=== PATIENT | female | born 1990 | race Caucasian/White ===

== ENCOUNTER → 2018-03-01 | Outpatient (CLI) | payer OTHER ==
[~2018-03-01] MED LIST: BACITO TP; HYDACE5325 PO; OXYACE5T PO; RXHYD5325 PO; RXOXYACE PO; SILSUL1TC TOP
== END | disposition home or self-care (01) ==
LOC: LAB SHORT 19:56 → LAB 19:56
PROVIDERS: Internal Medicine
DX: Z01.419 Encounter for gynecological examination (general) (routine) without abnormal findings (principal)
CPT/HCPCS: G0145

== ENCOUNTER → 2019-09-27 | Outpatient (CLI) | payer OTHER | END | disposition home or self-care (01) | LOC: LAB SHORT 12:00 → LAB 12:00 | PROVIDERS: Nurse Practitioner | DX: Z01.419 Encounter for gynecological examination (general) (routine) without abnormal findings (principal) | CPT/HCPCS: G0145 ==

== ENCOUNTER 2020-07-12 16:00 | Inpatient (IN) | payer BC ==
[~2020-07-12] VITALS: Ht 157.5 cm; Wt 73.2 kg
[2020-07-12 17:00] LABS: BASOPHILS ABSOLUTE AUTO 0.05 K/mm3 (0.00-0.23); BASOPHILS PERCENT AUTO 0 % (0-2); EOSINOPHILS ABSOLUTE AUTO 0.23 K/mm3 (0.00-0.68); EOSINOPHILS PERCENT AUTO 2 % (0-6); Hematocrit 36.9 % (33.0-51.0); Hemoglobin 12.2 g/dL (11.5-16.0); IMMATURE GRAN ABSOLUTE AUTO 0.07 K/mm3 (0.00-0.10); IMMATURE GRAN PERCENT AUTO 1 % (0-1); LYMPHOCYTES ABSOLUTE AUTO 1.96 K/mm3 (0.84-5.20); LYMPHOCYTES PERCENT AUTO 15 % (21-46); MONOCYTES PERCENT AUTO 7 % (4-13); Mean Corpuscular HGB 28.6 pg (26.0-34.0); Mean Corpuscular HGB Conc 33.1 g/dL (31.5-36.5); Mean Corpuscular Volume 87 fL (80-100); Mean Platelet Volume 11.5 fL (9.1-12.4); NEUTROPHILS ABSOLUTE AUTO 10.21 K/mm3 (1.96-9.15); NEUTROPHILS PERCENT AUTO 76 % (41-73); Platelet Count 260 K/mm3 (150-400); RDW Coefficient Variation 14.8 % (11.7-14.2); RDW Standard Deviation 45.9 fL (35.1-46.3); Red Blood Cell Count 4.26 M/mm3 (3.80-5.20); White Blood Cell Count 13.42 K/mm3 (4.00-11.30)
[2020-07-14 03:30] LABS: PCO2 Cord - Arterial 48.8 mmHg (40-50); PO2 Cord - Arterial 14.6 mmHg (16-20); pH Cord - Arterial 7.32 (7.28-7.35)
[2020-07-14 03:31] LABS: PCO2 Cord - Venous 47.5 mmHg (40-50); PO2 Cord - Venous 15.5 mmHg (28-32); pH Umbilical Cord - Venous 7.33 (7.26-7.35)
--- NOTE | 2020-07-14 03:34 | NUR ---
-RT x2 attented C/S. -Baby born at 0307, see counter top assembler for scores. -Baby born with strong cry, some central cyanosis (improving), and good tone. -No nasal flaring, no retractions. -Baby dried and stimulated. -Baby able to clear their own airway. -No further RT interventions.
[2020-07-14 12:02] LABS: Hematocrit 33.6 % (33.0-51.0); Hemoglobin 11.3 g/dL (11.5-16.0); Mean Corpuscular HGB 29.4 pg (26.0-34.0); Mean Corpuscular HGB Conc 33.6 g/dL (31.5-36.5); Mean Corpuscular Volume 87 fL (80-100); Mean Platelet Volume 11.3 fL (9.1-12.4); Platelet Count 210 K/mm3 (150-400); RDW Coefficient Variation 14.9 % (11.7-14.2); RDW Standard Deviation 46.7 fL (35.1-46.3); Red Blood Cell Count 3.85 M/mm3 (3.80-5.20); White Blood Cell Count 21.83 K/mm3 (4.00-11.30)
--- NOTE | 2020-07-14 14:15 | NUR ---
REPORT TO SOUMYA MANDUJANO
--- NOTE | 2020-07-15 00:14 | NUR ---
PT'S BP 158/81 AFTER RETURNING TO BED FROM GOING TO BATHROOM, PT STATES SHE IS IN GURU EPAIN WITH MOVING. RN TO REDO BP AFTER PT HAS BEEN RESTING IN BED. PT DENIES ANY HEADACHE, TINGLING/NUMBNESS, VISUAL DISTURBANCES.
--- NOTE | 2020-07-15 10:15 | NUR ---
doing well, plans to get up and walk soon,
--- NOTE | 2020-07-15 16:52 | NUR ---
RN ROUNDED TO HELP W/ . PT REPORTS IS GOING WELL. NB ROOTING AROUND, INSTRUCT/DEMO WIDENING LATCH, CORRECT POSITIONING AND NIPPLE SHAPE AFTER FEEDS. NB LATCHED WELL AND APPEARS TO BE FEEDING WELL, MOM HAS INITIAL LATCH ON PAIN THAT GOES AWAY. INSTRUCT/REVIEWED BOOKLET ON CORRECT LATCHING AND WHAT TO EXPECT W/ DURING THE FIRST WEEK OF LIFE. MOM LOVING W/ NB, DENIES ANY FURTHER QUESTIONS OR CONCERNS.
--- NOTE | 2020-07-15 22:40 | NUR ---
AT 2100 PT CALLED RN TO ROOM. PT STATED SHE FELL ASLEEP WITH ON HER CHEST AND WAS AWOKEN TO A HEAVINESS IN HER CHEST AND A HARD TIME BREATHING. VITALS CHECKED AND WNL. BLEEDING WNL. FUNDUS FIRM. PT STATES THE EPISODE ONLY LASTED A MOMENT. PT ADVISED TO CALL IF EPISODE OCCURS AGAIN. PLACED IN CRIB. PT AWARE OF TO BE IN CRIB FOR SLEEPING. WILL CONTINUE TO MONITOR
--- NOTE | 2020-07-16 08:30 | NUR ---
RN ROUNDED TO HELP W/ . PT STATES HAS BEEN GOING WELL, DENIES ANY FURTHER QUESTIONS OR CONCERNS. FURTHER SUPPORT OFFERED THROUGH [facility].
[2020-07-16] MEDS ORDERED: IBUP800 (09:04)
[2020-07-16] MEDS ORDERED: Percocet 5-3251 EACH (09:04)
== END 2020-07-16 11:24 | disposition home or self-care (01) | DRG 788 ==
LOC: OBS 16:00 → BC 16:09 → OBS 16:17 → BC 16:20
PROVIDERS: Obstetrics & Gynecology; ADMIT Nurse Practitioner Obstetrics & Gynecology
PROC: 3E0P7VZ Introduction of Hormone into Female Reproductive, Via Natural or Artificial Opening (ICD-10-PCS; 2020-07-12)
PROC: 3E033VJ Introduction of Other Hormone into Peripheral Vein, Percutaneous Approach (ICD-10-PCS; 2020-07-13)
PROC: 10H07YZ Insertion of Other Device into Products of Conception, Via Natural or Artificial Opening (ICD-10-PCS; 2020-07-13)
PROC: 00HU33Z Insertion of Infusion Device into Spinal Canal, Percutaneous Approach (ICD-10-PCS; 2020-07-13)
PROC: 3E0R3BZ Introduction of Anesthetic Agent into Spinal Canal, Percutaneous Approach (ICD-10-PCS; 2020-07-13)
PROC: 10D00Z1 Extraction of Products of Conception, Low, Open Approach (ICD-10-PCS; principal; 2020-07-14 02:00)
DX: O48.0 Post-term pregnancy (principal); O76 Abnormality in fetal heart rate and rhythm complicating labor and delivery; O77.0 Labor and delivery complicated by meconium in amniotic fluid; O64.0XX0 Obstructed labor due to incomplete rotation of fetal head, not applicable or unspecified; Z3A.41 41 weeks gestation of pregnancy; Z37.0 Single live birth; O61.0 Failed medical induction of labor; Z20.828 Contact with and (suspected) exposure to other viral communicable diseases
CPT/HCPCS: 36415; 82803; 85025; 85027; 86900; 86901; A9270; J0290; J0690; J1885; J2001; J2210; J2405; J2590; J2765; J3010; J7120; Q2038; U0003

== ENCOUNTER → 2023-05-14 | Outpatient (CLI) | payer OTHER ==
[~2023-05-14] MED LIST changes: +IBUP800; +Percocet 5-3251 EACH
[2023-05-14 13:23] LABS: BASOPHILS ABSOLUTE AUTO 0.07 K/mm3 (0.00-0.23); BASOPHILS PERCENT AUTO 1 % (0-2); EOSINOPHILS ABSOLUTE AUTO 0.44 K/mm3 (0.00-0.68); EOSINOPHILS PERCENT AUTO 8 % (0-6); Hematocrit 40.3 % (33.0-51.0); Hemoglobin 13.3 g/dL (11.5-16.0); IMMATURE GRAN ABSOLUTE AUTO 0.01 K/mm3 (0.00-0.10); IMMATURE GRAN PERCENT AUTO 0 % (0-1); LYMPHOCYTES ABSOLUTE AUTO 2.03 K/mm3 (0.84-5.20); LYMPHOCYTES PERCENT AUTO 37 % (21-46); MONOCYTES ABSOLUTE AUTO 0.53 K/mm3 (0.16-1.47); MONOCYTES PERCENT AUTO 10 % (4-13); Mean Corpuscular HGB 28.9 pg (26.0-34.0); Mean Corpuscular Volume 87 fL (80-100); Mean Platelet Volume 10.9 fL (9.1-12.4); NEUTROPHILS ABSOLUTE AUTO 2.44 K/mm3 (1.96-9.15); NEUTROPHILS PERCENT AUTO 44 % (41-73); Platelet Count 296 K/mm3 (150-400); RDW Standard Deviation 41.5 fL (35.1-46.3); Red Blood Cell Count 4.61 M/mm3 (3.80-5.20); White Blood Cell Count 5.52 K/mm3 (4.00-11.30)
[2023-05-14 13:28] LABS: Alanine Aminotransfer (ALT/SGP 21 U/L (12-78); Albumin/Globulin Ratio 1.2 (0.8-1.8); Alk Phos 56 U/L (50-136); Anion Gap 4 mmol/L (6-16); Aspartate Aminotrans (AST/SGOT 11 U/L (12-37); Bilirubin, Total 0.6 mg/dL (0.1-1.0); Blood Urea Nitrogen 12 mg/dL (8-24); CHOL/HDL RATIO 2.2; CO2, Blood 27 mmol/L (21-32); Calcium, Blood 9.1 mg/dL (8.5-10.1); Chloride, Blood 109 mmol/L (98-108); Cholesterol 171 mg/dL (50-200); Creatinine, Blood 0.86 mg/dL (0.40-1.00); Globulin, Blood 3.3 g/dL (2.2-4.0); Glomerular Filtration Rate 91 (60-); Glucose, Blood 87 mg/dL (70-99); HDL Cholesterol 77 mg/dL (>39); LDL/HDL RATIO 1.1; Low Density Lipoprotein Chol 82 mg/dL (0-110); Sodium, Blood 140 mmol/L (136-145); Total Protein, Blood 7.3 g/dL (6.4-8.2); Triglycerides 59 mg/dL (30-140); Very Low Density Lipoprot Chol 11 mg/dL (6-28)
== END | disposition home or self-care (01) ==
LOC: LAB SHORT 10:39
PROVIDERS: Physician Assistant
DX: Z13.6 Encounter for screening for cardiovascular disorders (principal); Z11.59 Encounter for screening for other viral diseases; R22.1 Localized swelling, mass and lump, neck
CPT/HCPCS: 80053; 80061; 85025; 86803

== ENCOUNTER 2023-11-16 06:49 | Emergency (ER) | payer BC ==
[~2023-11-16] VITALS: Ht 157.5 cm; Wt 63.5 kg
[2023-11-16 07:34] VITALS: BP 121/71
[2023-11-16] MEDS ORDERED: BUPROPION XL150 M1 PO (07:37)
[2023-11-16] MEDS ORDERED: ZOLOFT50 MG PO (07:37)
[2023-11-16] MEDS ORDERED: ERGO400 PO (07:37)
[2023-11-16] MEDS ORDERED: PRENATAL TABLE1 EAC2 PO (07:38)
[2023-11-16] MEDS ORDERED: ZYRTEC10 M2 PO (07:38)
[2023-11-16] MEDS ORDERED: CYCL10 PO (08:11)
== END 2023-11-16 08:19 | disposition home or self-care (01) ==
LOC: ER 06:49
DX: M54.6 Pain in thoracic spine (principal); Z79.899 Other long term (current) drug therapy
CPT/HCPCS: 99283

== ENCOUNTER → 2024-07-01 | Outpatient (CLI) | payer BC ==
[~2024-07-01] MED LIST changes: +BUPROPION XL150 M1 PO; +CYCL10 PO; +ERGO400 PO; +PRENATAL TABLE1 EAC2 PO; +ZOLOFT50 MG PO; +ZYRTEC10 M2 PO
== END | disposition home or self-care (01) ==
LOC: LAB SHORT 12:35 → LAB 12:35
DX: L08.9 Local infection of the skin and subcutaneous tissue, unspecified (principal)
CPT/HCPCS: 87070; 87075; 87077; 87147; 87186; 87205

== ENCOUNTER → 2025-01-03 | Outpatient (CLI) | payer BC | END | disposition home or self-care (01) | LOC: LAB SHORT 11:14 → LAB 11:14 | DX: L30.9 Dermatitis, unspecified (principal); S91.309A Unspecified open wound, unspecified foot, initial encounter; L72.9 Follicular cyst of the skin and subcutaneous tissue, unspecified | CPT/HCPCS: 87070; 87075; 87077; 87186; 87205 ==

== ENCOUNTER → 2025-02-06 | Outpatient (CLI) | payer BC ==
[2025-02-06 16:43] LABS: BASOPHILS ABSOLUTE AUTO 0.04 K/mm3 (0.00-0.23); BASOPHILS PERCENT AUTO 0 % (0-2); EOSINOPHILS ABSOLUTE AUTO 0.48 K/mm3 (0.00-0.68); EOSINOPHILS PERCENT AUTO 5 % (0-6); Hematocrit 34.5 % (33.0-51.0); Hemoglobin 11.3 g/dL (11.5-16.0); IMMATURE GRAN ABSOLUTE AUTO 0.08 K/mm3 (0.00-0.10); IMMATURE GRAN PERCENT AUTO 1 % (0-1); LYMPHOCYTES ABSOLUTE AUTO 1.62 K/mm3 (0.84-5.20); LYMPHOCYTES PERCENT AUTO 16 % (21-46); MONOCYTES ABSOLUTE AUTO 0.74 K/mm3 (0.16-1.47); MONOCYTES PERCENT AUTO 7 % (4-13); Mean Corpuscular HGB Conc 32.8 g/dL (31.5-36.5); Mean Corpuscular Volume 89 fL (80-100); Mean Platelet Volume 11.2 fL (9.1-12.4); NEUTROPHILS ABSOLUTE AUTO 7.51 K/mm3 (1.96-9.15); NEUTROPHILS PERCENT AUTO 72 % (41-73); Platelet Count 284 K/mm3 (150-400); RDW Coefficient Variation 13.2 % (11.7-14.2); RDW Standard Deviation 42.6 fL (35.1-46.3); White Blood Cell Count 10.47 K/mm3 (4.00-11.30)
== END | disposition home or self-care (01) ==
LOC: LAB 13:50 → LAB SHORT 13:50
PROVIDERS: Advanced Practice Midwife
DX: Z34.82 Encounter for supervision of other normal pregnancy, second trimester (principal)
CPT/HCPCS: 82950; 85025

== ENCOUNTER 2025-04-25 07:53 | Inpatient (IN) | payer BC ==
[2025-04-24 13:23] LABS: BASOPHILS ABSOLUTE AUTO 0.05 K/mm3 (0.00-0.23); BASOPHILS PERCENT AUTO 0 % (0-2); EOSINOPHILS ABSOLUTE AUTO 0.40 K/mm3 (0.00-0.68); EOSINOPHILS PERCENT AUTO 3 % (0-6); Hematocrit 35.3 % (33.0-51.0); Hemoglobin 11.8 g/dL (11.5-16.0); IMMATURE GRAN ABSOLUTE AUTO 0.08 K/mm3 (0.00-0.10); IMMATURE GRAN PERCENT AUTO 1 % (0-1); LYMPHOCYTES ABSOLUTE AUTO 2.03 K/mm3 (0.84-5.20); LYMPHOCYTES PERCENT AUTO 15 % (21-46); MONOCYTES ABSOLUTE AUTO 1.06 K/mm3 (0.16-1.47); MONOCYTES PERCENT AUTO 8 % (4-13); Mean Corpuscular HGB Conc 33.4 g/dL (31.5-36.5); Mean Corpuscular Volume 84 fL (80-100); NEUTROPHILS ABSOLUTE AUTO 9.73 K/mm3 (1.96-9.15); NEUTROPHILS PERCENT AUTO 73 % (41-73); NRBC ABSOLUTE 0.00 K/mm3 (0.00-0.02); NRBC Auto 0.0 /100 WBC (0.0-0.2); Platelet Count 260 K/mm3 (150-400); RDW Coefficient Variation 13.8 % (11.7-14.2); RDW Standard Deviation 42.4 fL (35.1-46.3)
[2025-04-24 14:07] LABS: Alanine Aminotransfer (ALT/SGP 28.0 U/L (12-78); Albumin, Blood 2.6 g/dL (3.4-5.0); Albumin/Globulin Ratio 0.6 (0.8-1.8); Anion Gap 7.0 mmol/L (3-11); Aspartate Aminotrans (AST/SGOT 24.0 U/L (12-37); Bilirubin, Total 0.3 mg/dL (0.1-1.0); Blood Urea Nitrogen 9.0 mg/dL (8-24); CO2, Blood 24.0 mmol/L (21-32); Calcium, Blood 9.5 mg/dL (8.5-10.1); Chloride, Blood 106.0 mmol/L (98-108); Creatinine, Blood 0.73 mg/dL (0.40-1.00); Globulin, Blood 4.2 g/dL (2.2-4.0); Glucose, Blood 83.0 mg/dL (70-99); Potassium, Blood 3.8 mmol/L (3.5-5.5); Sodium, Blood 133.0 mmol/L (136-145); Total Protein, Blood 6.8 g/dL (6.4-8.2)
[2025-04-25] VITALS (17 sets, daily range): BP systolic 89–132; BP diastolic 51–78
[~2025-04-25] VITALS: Ht 157.5 cm; Wt 87.7 kg
[2025-04-25] MEDS ORDERED: CeFAZolin Sodium 2,000 MG in NS 100 ML IV SCH (08:00)
[2025-04-25] MEDS ORDERED: Metoclopramide HCl 5MG / ML 2ML Vial IV ONE (08:00)
[2025-04-25] MEDS ORDERED: Citric Acid/Sodium Citrate 30 ML BTL PO SCH (08:00)
[2025-04-25] MEDS ORDERED: Phenylephrine HCl 100 MCG/ML-NS 10MLSYR (1MG/10ML) ONE (10:20)
[2025-04-25] MEDS ORDERED: ePHEDrine Sulfate 50 MG/ML 1ML Injection ONE (10:26)
[2025-04-25] MEDS ORDERED: Oxytocin 10 Unit / ML Vial ONE ×2 (10:29)
[2025-04-25] MEDS ORDERED: Ondansetron HCl 2 MG / ML 2ML Vial ONE (10:39)
[2025-04-25] MEDS ORDERED: Dexamethasone Sod Phos 10 MG/ML 1ML VIAL ONE (10:59)
--- NOTE | 2025-04-25 11:04 | NUR ---
04/25/25 1104 [place] REPEAT SECTION DELIVERY OF VIABLE FEMALE AT 1035. CORD BLOOD COLLECTED AND GIVEN TO NILDA BURNETT RN. PPV GIVEN FOR 15 SECONDS FOLLOWED BY CPA. DR MUSE TO SEE IN OR. CARE CONTINUED BY NILDA BURNETT RN.
[2025-04-25] MEDS ORDERED: HYDROmorphone HCl/Pf 1MG SYR IV PRN ×2 (11:10)
[2025-04-25] MEDS ORDERED: FentaNYL Citrate 50 MCG/ML 2 ML Injection IV PRN ×2 (11:15)
[2025-04-25] MEDS ORDERED: Albuterol 2.5 MG/3 ML VIAL INH PRN (11:15)
[2025-04-25] MEDS ORDERED: Ondansetron HCl 2 MG / ML 2ML Vial IV PRN (11:15)
[2025-04-25] MEDS ORDERED: ePHEDrine Sulfate 50 MG/ML 1ML Injection IV PRN (11:15)
[2025-04-25] MEDS ORDERED: Ketorolac Tromethamine 30mg Vial IV PRN (11:55)
[2025-04-25] MEDS ORDERED: Magnesium Hydroxide Conc 10 ML UDC PO PRN (12:40)
[2025-04-25] MEDS ORDERED: Tranexamic Acid 1000 MG/10 ML 10ML Vial (SDV) IV ONE (14:46)
[2025-04-25] MEDS ORDERED: Ketorolac Tromethamine 30mg Vial IV SCH (18:00)
[2025-04-26 00:21] VITALS: BP 97/50
[2025-04-26 04:55] VITALS: BP 116/67
[2025-04-26 06:44] LABS: BASOPHILS ABSOLUTE AUTO 0.04 K/mm3 (0.00-0.23); BASOPHILS PERCENT AUTO 0 % (0-2); EOSINOPHILS ABSOLUTE AUTO 0.14 K/mm3 (0.00-0.68); EOSINOPHILS PERCENT AUTO 1 % (0-6); Hematocrit 28.0 % (33.0-51.0); Hemoglobin 9.5 g/dL (11.5-16.0); IMMATURE GRAN ABSOLUTE AUTO 0.10 K/mm3 (0.00-0.10); IMMATURE GRAN PERCENT AUTO 1 % (0-1); LYMPHOCYTES ABSOLUTE AUTO 2.61 K/mm3 (0.84-5.20); LYMPHOCYTES PERCENT AUTO 14 % (21-46); MONOCYTES ABSOLUTE AUTO 1.39 K/mm3 (0.16-1.47); MONOCYTES PERCENT AUTO 8 % (4-13); Mean Corpuscular HGB Conc 33.9 g/dL (31.5-36.5); Mean Corpuscular Volume 84 fL (80-100); NEUTROPHILS ABSOLUTE AUTO 14.00 K/mm3 (1.96-9.15); NEUTROPHILS PERCENT AUTO 77 % (41-73); NRBC ABSOLUTE 0.00 K/mm3 (0.00-0.02); NRBC Auto 0.0 /100 WBC (0.0-0.2); Platelet Count 221 K/mm3 (150-400); RDW Coefficient Variation 13.9 % (11.7-14.2); RDW Standard Deviation 43.1 fL (35.1-46.3)
[2025-04-26 07:13] VITALS: BP 116/64
[2025-04-26] MEDS ORDERED: Prenatal Vit/FE Fumarate/FA 1 Tab PO SCH (09:00)
[2025-04-26] MEDS ORDERED: FLU VACC TS2024-25(6MOS UP)/PF 45 MCG/0.5 ML SYRINGE IM ONE (11:40)
[2025-04-26] MEDS ORDERED: Sod Ferric Gluc Complx/Sucrose 125 MG in NS 100 ML IV ONE (12:00)
[2025-04-26] MEDS ORDERED: IBUP800 PO (12:46)
[2025-04-26] MEDS ORDERED: Percocet 5-3251 EACH PO (12:47)
[2025-04-26 12:49] VITALS: BP 119/69
[2025-04-27] MEDS ORDERED: Sod Ferric Gluc Complx/Sucrose 125 MG in NS 100 ML IV ONE (09:00)
== END 2025-04-26 14:50 | disposition home or self-care (01) | DRG 788 ==
LOC: BC 07:53
PROVIDERS: ADMIT Family Medicine
PROC: 10D00Z1 Extraction of Products of Conception, Low, Open Approach (ICD-10-PCS; principal; 2025-04-25 10:00)
DX: O34.211 Maternal care for low transverse scar from previous cesarean delivery (principal); Z3A.39 39 weeks gestation of pregnancy; Z37.0 Single live birth
CPT/HCPCS: 36415; 80053; 85025; 86850; 86900; 86901; 86923; A9270; J0690; J1100; J1885; J2371; J2405; J2590; J2765; J2916; J7120